=== PATIENT | female | born 1980 | race Caucasian/White ===

== ENCOUNTER 2019-09-10 14:04 | Outpatient (REF) | payer OTHER, SELFPAY ==
[2019-09-10 18:52] LABS: HCT 39.3 % (36.0-46.0); HGB 13.6 g/dL (12.0-15.5); Mean Corp. HGB Concentration 34.6 g/dL (32.0-36.0); Mean Corpuscular Hemoglobin 31.1 pg (27.0-33.0); Mean Corpuscular Volume 89.9 fL (80-95); Mean Platelet Volume 10.8 fL (8.0-11.0); Platelet Count 315 x1000/uL (130-400); RBC 4.37 m/cumm (4.00-5.20); RBC Distribution Width 11.9 % (11.7-14.6); White Blood Cell Count 8.61 k/cumm (4.4-10.8)
[2019-09-10 18:53] LABS: ALT 24 U/L (14-59); AST 12 U/L (15-37); Albumin 4.1 g/dL (3.4-5.0); Alkaline Phosphatase 86 U/L (46-116); Anion Gap 9.3 mmol/L (3-11); BUN 15 mg/dL (7-18); Bilirubin, Total 0.8 mg/dL (0.2-1.0); CO2 25.7 mmol/L (21.0-32.0); CREATININE 1.01 mg/dL (0.55-1.02); Calcium 9.1 mg/dL (8.5-10.1); Calculated LDL 146 mg/dL (<100); Chloride 100 mmol/L (98-107); Cholesterol 215 mg/dL (<200); Glucose 87 mg/dL (74-106); HDL Cholesterol 56 mg/dL (40-60); Potassium 3.9 mmol/L (3.5-5.1); Sodium 135 mmol/L (136-145); Total Protein 7.1 g/dL (6.4-8.2); Triglyceride 66 mg/dL (<150)
[2019-09-13 10:09] LABS: Hepatitis C Ab w Rflx HCV PCR Negative (Negative)
[2019-09-13 12:15] LABS: HIV-1/2 Ag & Ab Screen Negative (Negative)
== END 2019-09-10 14:24 ==
LOC: NCHCN 14:04
PROVIDERS: PCP Nurse Practitioner Family; Visit Provider Nurse Practitioner Family
DX: Z00.00 Encounter for general adult medical examination without abnormal findings (principal); Z11.4 Encounter for screening for human immunodeficiency virus [HIV]; Z13.0 Encounter for screening for diseases of the blood and blood-forming organs and certain disorders involving the immune mechanism; Z13.228 Encounter for screening for other metabolic disorders; Z13.220 Encounter for screening for lipoid disorders; Z11.59 Encounter for screening for other viral diseases
CPT/HCPCS: 80053; 80061; 85027; 86803; 87389

== ENCOUNTER 2021-09-18 11:04 | Outpatient (REF) | payer BC, SELFPAY ==
--- NOTE | 2021-09-18 08:40 | PAPFT_PTH ---
PATIENT: Adore Palacios LOC: [facility]#:[id number] AGE/SX: 41/F ROOM: RE09/18/[address]: Ynes Calderon : 1980 BED: DIS: 09/18/2021 SPEC #: [id number] RECD: 09/18/21 18:33 STATUS: ASA RERay #: [id number] PADMINI: 09/18/21 08:[address]: Ynes Calderon DEPT: [facility] Cytology RECD BY: Vonda Cuellar ENTERED: 09/18/21 18:33 SP TYPE: PAPFT OTHR DR: Selma Romero Tissues: 1 - CX/ENDOCX FOR PAP SMEARS Procedures: PAP THIN PREP/UVM Screening HPV DNA PROBE Comments: [id number]
== END 2021-09-18 11:05 | disposition home or self-care (01) ==
LOC: NCHCN 11:04
PROVIDERS: PCP Nurse Practitioner Family; Visit Provider Nurse Practitioner Family
DX: Z12.4 Encounter for screening for malignant neoplasm of cervix (principal); Z11.51 Encounter for screening for human papillomavirus (HPV); Z00.00 Encounter for general adult medical examination without abnormal findings
CPT/HCPCS: 88142; 87624

== ENCOUNTER 2021-10-05 11:57 | Outpatient (REF) | payer BC, SELFPAY ==
--- NOTE | 2021-10-05 09:20 | CER_PTH ---
PATIENT: Adore Palacios LOC: [facility] U#:[id number] AGE/SX: 41/F ROOM: RE10/05/[address]: Tabatha Dunn DO : 1980 BED: DIS: 10/05/2021 SPEC #: [id number] RECD: 10/05/21 12:40 STATUS: SOUCraig REQ #: [id number] PADMINI: 10/05/21 09:[address]: Tabatha Dunn DEPT: Surgical Specimen RECD BY: Vonda Cuellar ENTERED: 10/05/21 12:41 SP TYPE: CER OTHR DR: Selma Romero Tissues: 1 - CERVICAL BIOPSY Procedures: GROSS AND MICRO LEVEL 4 Comments: [id number]
== END 2021-10-05 11:58 | disposition home or self-care (01) ==
LOC: LBN 11:57
PROVIDERS: PCP Nurse Practitioner Family; Visit Provider Obstetrics & Gynecology
DX: N84.1 Polyp of cervix uteri (principal)
CPT/HCPCS: 88305

== ENCOUNTER 2022-09-25 15:45 | Outpatient (REF) | payer BC, SELFPAY ==
[2022-09-25 16:36] LABS: Anion Gap 7.7 mmol/L (3-11); BUN 11 mg/dL (7-18); CO2 26.3 mmol/L (21.0-32.0); Calculated LDL 122 mg/dL (<100); Chloride 104 mmol/L (98-107); Cholesterol 220 mg/dL (<200); Estimated GFR 71.24 (mL/min/1.73m2); Glucose 96 mg/dL (74-106); HDL Cholesterol 60 mg/dL (40-60); Potassium 3.6 mmol/L (3.5-5.1); Sodium 138 mmol/L (136-145); Triglyceride 193 mg/dL (<150)
== END 2022-09-25 15:46 | disposition home or self-care (01) ==
LOC: NCHCN 15:45
PROVIDERS: PCP Nurse Practitioner Family; Visit Provider Nurse Practitioner Family
DX: Z00.00 Encounter for general adult medical examination without abnormal findings (principal); Z12.11 Encounter for screening for malignant neoplasm of colon; Z12.31 Encounter for screening mammogram for malignant neoplasm of breast; Z13.1 Encounter for screening for diabetes mellitus; M79.673 Pain in unspecified foot; K64.9 Unspecified hemorrhoids; E78.5 Hyperlipidemia, unspecified
CPT/HCPCS: 80048; 80061

== ENCOUNTER → 2022-12-12 04:52 | Outpatient (CLI) | payer BC, SELFPAY ==
--- NOTE | 2022-12-12 | DI.MAMMO_ITS ---
Exam(s) MAMMO SCREENING EXAM: MAMMO SCREENING CLINICAL HISTORY: SCREENING, Z12.39. TECHNIQUE: Bilateral full field digital CC and MLO mammographic images were obtained with 3D tomosyn thesis and utilizing computer aided detection (CAD). COMPARISON: None. This is a baseline mammogram on a 42-year-old patient. FINDINGS: There are no CAD designations. There are no new spiculated masses nor malignant appearing microcalcification groups. There is no significant architectural distortion nor skin thickening-retraction. IMPRESSION: No radiographic evidence of malignancy. BI-RADS Category 1 - Negative Breast Density - Category B - Scattered areas of fibroglandular density Breast density Category C or D implies that the patient has dense breast tissue. Dense breast tissue can make it harder to find cancer on a mammogram. Dense breast tissue is also associated with an incr eased risk of breast cancer. This information about the result of the mammogram report was provided to the patient to raise their awareness. Use this report when you speak with the patient about their risks for breast cancer, which includes their family history. At that time, you may recommend additional screening tests (Ultrasoun d or MRI) as these tests may add significant information. A negative radiographic report should not delay biopsy if a dominant or clinically suspicious mass is present. Up to ten percent of cancers are not identified on mammography. A negative report may reinforce clinical impression. Adenosis and dense breasts may obscure an underlying neoplasm. False positive reports average 6 to 10%. Patient will receive a letter notifying them of these results.
== END ==
PROVIDERS: PCP Nurse Practitioner Family; Visit Provider Nurse Practitioner Family
DX: Z12.31 Encounter for screening mammogram for malignant neoplasm of breast (principal)
CPT/HCPCS: 77063; 77067

== ENCOUNTER 2023-06-16 07:03 | Day surgery (SDC) | payer BC, SELFPAY ==
--- NOTE | 2023-06-15 13:52 | W.ANESPRE ---
General Info Date of Service Date Performed: 06/16/23 Height: 5 ft 2 in Weight: 71.214 kg Body Mass Index (BMI): 28.7 Surgical Procedure: Operation Date: 06/16/23 08:20 Proposed Procedure Side Surgeon jay jay Landaverde MD Meds Allergies and Home Medications Allergies Allergy/AdvReac Type Severity Reaction Status Date / Time Sulfa (Sulfonamide Allergy Other (See Unverified 06/16/23 07:38 Antibiotics) Comment) Home Medication Medication Instructions Recorded multivitamin (Daily Multiple 1 ea PO DAILY 11/11/16 tablet) albuterol sulfate 90 mcg/actuation 2 puff inhalation Q6H PRN 10/28/22 aerosol inhaler (Proventil HFA) shortness of breath or wheezing #8.5 grams Bacillus coagulans 250 million 250 cell PO DAILY 05/21/23 cell chewable tablet (Digestive Advantage Probiotic Gummy) cyanocobalamin (vitamin B-12) 500 500 mcg PO DAILY 05/21/23 mcg tablet (Vitamin B-12) Current Visit Medications: Current Medications Generic Name Dose Route Start Last Admin Trade Name Neo PRN Reason Stop Dose Admin Ringer's Solution 1,000 mls @ 80 mls/hr 06/16/23 06:00 IV 06/16/23 23:59 INFUSION SHANIA IV Miscellaneous Supplies 1 each 06/16/23 06:00 Iv Access IV 06/16/23 23:59 DIRECTED SHANIA Sodium Chloride 0 ml 06/16/23 06:00 Normal Saline Flush 10 Ml Syr IV 06/16/23 23:59 PRN PRN Sodium Chloride 0 ml 06/16/23 06:00 Normal Saline 10 Ml Vial IJ 06/16/23 23:59 DIRECTED PRN Sterile Water 0 ml 06/16/23 06:00 Water,Injection,Sterile 10 Ml Vial IJ 06/16/23 23:59 DIRECTED PRN PFSH Active Problems Active Problems: Problem Status Onset Code Foot pain M79.673 Hyperlipidemia E78.5 Endocervical polyp N84.1 Medical History Medical History Hemorrhoids Obesity Tobacco Smoking/Tobacco Use Status: Former Tobacco Use Alcohol Alcohol Intake: current Alcohol intake frequency: holidays/special occasions only Substance Use Substance use: Never Substance use type: does not use Prental History History 0 Para Hx # Term Pregnancies Multiple births Hx # Pregnancies Ectopic pregnancies AB induced Hx Number of Living Children AB spontaneous Vital Signs and Lab Results Vital Signs Most Recent Vital Signs in EMR: Temp Pulse Resp BP Pulse Ox 36.3 C L 78 16 132/82 97 06/16/23 07:39 06/16/23 07:39 06/16/23 07:39 06/16/23 07:39 06/16/23 07:39 Lab Results Blood Type / Crossmatch: No Data to Display Complete Blood Count: No Data to Display Complete Metabolic Panel: No Data to Display Liver Function Panel: No Data to Display Coagulation Panel: No Data to Display Cardiac Panel: No Data to Display Arterial Blood Gas: No Data to Display Venous Blood Gas: No Data to Display Pancreas Panel: No Data to Display Thyroid Panel: No Data to Display Infectious Disease: No Data to Display Blood Cultures: No Data to Display Toxicology Panel: No Data to Display Panel: No Data to Display Anesthesia Assessment and Plan Anesthesia History Personal History: No History of Anesthesia Complications Family History: No Family History of Anesthesia Complications Exercise Tolerance Exercise Tolerance: Metabolic Equivalents>4 Cardiac & Pulmonary Exam Cardiac Exam: Normal S1/S2 Heart Sounds Pulmonary Exam: Clear Bilateral Breath Sounds Implantable Cardiac Device Does patient have a Pacemaker or an ICD?: No Airway Exam Known Difficult Airway: No Mallampati Class: 1 Mouth Opening: Normal (> 3cm) Thyromental Distance: Greater than 3 cm Neck Range of Motion: Full ROM Neck Circumference: Normal Teeth Condition: Normal Dentition ASA Classification ASA Score: ASA 2 Emergency Case?: No NPO Status NPO Status: NPO Clears >2 hours, Solids >8 hours Status Status: Not Relevant due to Medical History Anesthesia Plan Resuscitation Status: Full Code Anesthesia Technique: General Anesthesia Airway Planned: Natural Airway Monitors Used: Standard Monitors Preoperative Comments:: 43 yo female for colo. Sig PMHx: former smoker, occ etoh.
--- NOTE | 2023-06-15 20:36 | W.PM.DSUDISC ---
Date of service: 06/16/23 Time of Service: 08:43 Discharge Plan Disposition Patient Disposition: Home Condition: Good Discharge Details Reason For Visit: screening colonoscopy Attending Provider: Andrew Landaverde Primary Care Provider: DANA GONZALEZ Home Meds and New Rx's Prescriptions: Continued albuterol sulfate [Proventil HFA] 90 mcg/actuation HFA aerosol inhaler 2 puff inhalation Q6H PRN (Reason: shortness of breath or wheezing) Qty: 8.5 0RF multivitamin [Daily Multiple] 1 EACH tablet 1 ea PO DAILY Digestive Advantage Prob Gummy 250 million cell tablet,chewable 250 cell PO DAILY cyanocobalamin (vitamin B-12) [Vitamin B-12] 500 mcg tablet 500 mcg PO DAILY Discontinued bisacodyl [Dulcolax (bisacodyl)] 5 mg tablet,delayed release (DR/EC) 5 mg PO ONCE Qty: 4 0RF Rx Instructions: Colonoscopy Bowel Prep- Per Instructions polyethylene glycol 3350 17 gram/dose powder 238 g PO ONCE Qty: 238 0RF Rx Instructions: Colonoscopy Bowel Prep- Per Instructions Discharge Instructions Additional Instructions: Adore, we were able to complete your colonoscopy today without any difficulty. Your bowel prep was excellent, and we could see everything just fine. Everything looks totally normal. I did not see any signs of any tumors or polyps or anything else worrisome. You should consider another screening colonoscopy in 10 years. If you have any questions in the meantime, please do not hesitate to call, or let your primary care physician know. 1. If tolerated, consume a soft, low fiber diet for 1-2 days. 2[address] Do not drive, drink alcohol, operate machinery, make critical decisions, or do activities that require coordination or balance for 24 hours. 3. Because air was put into your colon during the procedure, expelling air from your rectum (passing gas or farting) is normal. 4. You may not have a bowel movement for 1-3 days because of the colonoscopy prep. This is normal. 5. Go directly to the emergency room if you notice any of the following: Develop chills (warm to touch), or if you have a thermometer and your temperature is above 101 Difficulty breathing or difficultly swallowing Persistent vomiting Severe abdominal pain, other than gas cramps Severe chest pain Black, tarry stools Any bleeding ? exceeding one tablespoon 6. Call your physician if the site where your intravenous was started becomes red, swollen, painful, and warm to touch. 7. Your physician has reviewed your pre-procedure medications. Please continue to take those medications as previously ordered. You will be given specific information/education regarding any changes to your medications before leaving. Activity:: Activity as Tolerated Diet:: As Tolerated Discharge Orders Discharge Orders: Discharge Order (Routine); Ordered 06/15/23 Ordered By: Andrew Landaverde
--- NOTE | 2023-06-15 20:40 | W.COLOREPORT ---
Date of service: 06/16/23 Time of Service: 08:44 Colonoscopy Report Date of procedure: 06/16/23 Pre-op diagnosis general: screening colonoscopy Post-op diagnosis procedure note: other (Negative screening colonoscopy) Procedure: colonoscopy Surgeon: Andrew Landaverde Anesthesia Type: General:No Airway Estimated blood loss (mL): 0 Pathology: none sent Complications: None Disposition: same day Indications: Chi is a 43 year old woman who needs a screening colonoscopy Prep: Miralax/Dulcolax Procedure Start Time: 08:21 Procedure End Time: 08:38 Retraction Time: 9 Findings: Negative screening colonoscopy Procedure Description: After the induction of anesthesia, and with the patient in left lateral decubitus position, I began by performing an external anorectal exam.? There are some fibrosed perianal skin tags. Next, I performed a digital rectal exam.? I did not appreciate any abnormal findings.? Next, I advanced a colonoscope into the rectal vault.? I performed retroflexion.? This was normal.? Using insufflation, I then advanced the colonoscope beyond the rectal folds and into the sigmoid colon before advancing towards the cecum.? The scope was noted to be in the cecum by identification of the ileocecal valve and appendiceal orifice.? I then began withdrawing the colonoscope using repeated irrigation as necessary for full evaluation of the colonic mucosa. ?Once the scope was withdrawn to the level of the rectum, great care was taken to examine portions of the rectal folds. I did not see any signs of tumors, polyps, or any other worrisome pathology.? Finally, the scope was withdrawn and the patient was brought to the same-day surgery recovery unit as the anesthetic wore off. ?The findings and instructions were shared with the patient prior to discharge. [place] Bowel Prep [place] Bowel Prep Right Colon: 3 Left Colon: 3 Transverse Colon: 3 Total Score: 9
[2023-06-16 07:39] VITALS: BP 132/82; PULSE 78; RESP 16; TEMP 36.3; O2SAT 97
[2023-06-16] MEDS: Lactated Ringers 1,000 ML 80 ML IV (07:45)
[2023-06-16 07:51] VITALS: BMI 28.7
[2023-06-16 08:42] VITALS: BP 98/63; PULSE 78; RESP 16; TEMP 36.3; O2SAT 100
--- NOTE | 2023-06-16 08:54 | W.ANESPOSTOP ---
Postoperative Evaluation Date, Time and Location Date Performed: 06/16/23 Time Performed: 08:54 Patient Location: Day Surgery Unit Vital Signs Most Recent Imported Vital Signs: Most Recent Vital Signs Temp Pulse Resp BP Pulse Ox 36.3 C L 78 16 98/63 L 100 06/16/23 08:42 06/16/23 08:42 06/16/23 08:42 06/16/23 08:42 06/16/23 08:42 Pain Score Most Recent Pain Score: Most Recent Pain Score Pain Level 0 06/16/23 08:42 Assessment Mental Status: Awake (Alert & Oriented to Patient Baseline) Airway and Respiratory Function: Patent airway with normal (patient baseline) respiratory exam Cardiovascular Function: Hemodynamically Stable Hydration Status: Adequately Hydrated Nausea & Vomiting: No Nausea or Vomiting Pain: Pt. Denies Any Pain Peripheral Nerve Block: Patient did not receive a nerve block
[2023-06-16 09:10] VITALS: BP 101/62; PULSE 67; RESP 16; TEMP 36.3; O2SAT 97
== END 2023-06-16 09:15 | disposition home or self-care (01) ==
PROVIDERS: PCP Nurse Practitioner Family; Visit Provider Surgery
PROC: 0DJD8ZZ Inspection of Lower Intestinal Tract, Via Natural or Artificial Opening Endoscopic (ICD-10-PCS; CPT 45378; principal; 2023-06-16 08:15)
DX: Z12.11 Encounter for screening for malignant neoplasm of colon (principal); E78.5 Hyperlipidemia, unspecified
CPT/HCPCS: 45378; J2704

== ENCOUNTER 2023-09-29 12:25 | Outpatient (REF) | payer BC, SELFPAY ==
[2023-09-29 16:05] LABS: Anion Gap 11.3 mmol/L (3-11); BUN 15 mg/dL (7-18); CO2 22.7 mmol/L (21.0-32.0); CREATININE 0.9 mg/dL (0.55-1.02); Calcium 9.1 mg/dL (8.5-10.1); Calculated LDL 153 mg/dL (<100); Chloride 105 mmol/L (98-107); Cholesterol 236 mg/dL (<200); Estimated GFR 80.34 (mL/min/1.73m2); Glucose 92 mg/dL (74-106); HDL Cholesterol 65 mg/dL (40-60); Sodium 139 mmol/L (136-145); Triglyceride 93 mg/dL (<150)
== END 2023-09-29 12:26 | disposition home or self-care (01) ==
LOC: NCHCN 12:25
PROVIDERS: PCP Nurse Practitioner Family; Visit Provider Nurse Practitioner Family
DX: Z00.00 Encounter for general adult medical examination without abnormal findings (principal)
CPT/HCPCS: 80048; 80061

== ENCOUNTER 2024-12-14 01:29 | Outpatient (CLI) | payer BC, SELFPAY ==
--- NOTE | 2024-12-14 08:36 | DI.MAMMO_ITS ---
Exam(s) MAMMO SCREENING EXAM: MAMMO SCREENING CLINICAL HISTORY: SCREENING, Z12.31. TECHNIQUE: Bilateral full field digital CC and MLO mammographic images were obtained with 3D tomosynthesis and utilizing computer aided detection (CAD). COMPARISON: Prior baseline mammogram of November 2022 was reviewed FINDINGS: There has been no significant change in the appearance and distribution of the fibroglandular tissue. There are no new spiculated masses nor malignant appearing microcalcification groups. There is no significant architectural distortion nor skin thickening-retraction. IMPRESSION: No radiographic evidence of malignancy. BI-RADS Category 1 - Negative Breast Density - Category B - There are scattered areas of fibroglandular density. Breast density Category C or D implies that the patient has dense breast tissue. Dense breast tissue can make it harder to find cancer on a mammogram. Dense breast tissue is also associated with an increased risk of breast cancer. This information about the result of the mammogram report was provided to the patient to raise their awareness. Use this report when you speak with the patient about their risks for breast cancer, which includes their family history. At that time, you may recommend additional screening tests (Ultrasound or MRI) as these tests may add significant information. A negative radiographic report should not delay biopsy if a dominant or clinically suspicious mass is present. Up to ten percent of cancers are not identified on mammography. A negative report may reinforce clinical impression. Adenosis and dense breasts may obscure an underlying neoplasm. False positive reports average 6 to 10%. Patient will receive a letter notifying them of these results.
== END 2024-12-14 01:49 ==
PROVIDERS: PCP Nurse Practitioner Family; Visit Provider Nurse Practitioner Family
DX: Z12.31 Encounter for screening mammogram for malignant neoplasm of breast (principal); R92.323 Mammographic fibroglandular density, bilateral breasts
CPT/HCPCS: 77063; 77067